=== PATIENT | male | born 1935 | race Caucasian/White ===

== ENCOUNTER → 2017-08-23 | Outpatient (CLI) | payer MEDICARE, OTHER ==
[~2017-08-23] MED LIST: REGADENOSON 0.4 MG/5 ML SYRINGE ONE
== END ==
LOC: CVU 09:35
PROVIDERS: ATTEND Internal Medicine Cardiovascular Disease
DX: I10 Essential (primary) hypertension (principal); Z95.1 Presence of aortocoronary bypass graft
CPT/HCPCS: 78452; 93017; 93306; A9502; J2785

== ENCOUNTER 2017-10-28 20:29 | Emergency (ER) | payer MEDICARE, OTHER ==
[~2017-10-28] VITALS: Ht 188 cm; Wt 126.6 kg
[2017-10-28 20:45] VITALS: BP 176/82
[2017-10-28 21:20] LABS: BASOPHILS % (AUTO) 0 % (0-1); EOSINOPHILS # (AUTO) 0.11 x10^3/uL (0-0.4); EOSINOPHILS % (AUTO) 1 % (1-7); LYMPHOCYTES # (AUTO) 1.29 x10^3/uL (1-3.4); LYMPHOCYTES % (AUTO) 10 % (22-44); MD NO; MEAN CORPUSCULAR HEMOGLOBIN 29.1 pg (27.5-34.5); MEAN CORPUSCULAR HGB CONC 33.2 g/dL (33.2-36.2); MEAN CORPUSCULAR VOLUME 87.6 fL (81-97); MEAN PLATELET VOLUME 10.1 fL (7.4-10.4); MONOCYTES # (AUTO) 0.28 x10^3/uL (0.2-0.8); MONOCYTES % (AUTO) 2 % (2-9); NEUTROPHILS # (AUTO) 11.01 x10^3/uL (1.8-6.8); NEUTROPHILS % (AUTO) 87 % (42-75); PLATELET COUNT 169 x10^3/uL (130-400); RED BLOOD COUNT 5.29 x10^6/uL (4.38-5.82); RED CELL DISTRIBUTION WIDTH 14.5 % (9.4-14.8)
[2017-10-28 21:32] LABS: ALANINE AMINOTRANSFERASE 29 U/L (12-78); ALBUMIN 3.7 g/dL (3.4-5.0); ANION GAP 6 mmol/L (5-15); CALCIUM 9.8 mg/dL (8.5-10.1); CHLORIDE 107 mmol/L (98-107)
[2017-10-28 21:35] LABS: ALKALINE PHOSPHATASE 62 U/L (45-117); BILIRUBIN,TOTAL 0.4 mg/dL (0.2-1.0); CREATININE 1.55 mg/dL (0.7-1.3); TOTAL PROTEIN 7.1 g/dL (6.4-8.2)
[2017-10-28] MEDS ORDERED: ONDANSETRON 2MG/ML, 2ML IVPush ONE (22:00)
[2017-10-28 22:05] LABS: CULTURE INDICATED? NO; MICROSCOPIC AUTO
[2017-10-28] MEDS ORDERED: ONDANSETRON 2MG/ML, 2ML ONE (22:05)
[2017-10-28] MEDS ORDERED: MORPHINE SULFATE 4 MG/ML, 1ML ONE ×2 (22:06→23:05)
[2017-10-28] MEDS: MORPHINE SULFATE 4 MG/ML, 1ML IVPush PRN ×2 (22:16→23:07)
[2017-10-28] MEDS ORDERED: DIPHENHYDRAMINE 50 MG/ML, 1ML ONE (23:14)
[2017-10-28] MEDS ORDERED: DIPHENHYDRAMINE 50 MG/ML, 1ML IVPush ONE (23:30)
== END 2017-10-29 00:13 | disposition home or self-care (01) ==
LOC: ED 22:07
DX: N13.2 Hydronephrosis with renal and ureteral calculous obstruction (principal); E11.9 Type 2 diabetes mellitus without complications; E78.5 Hyperlipidemia, unspecified; I25.2 Old myocardial infarction; Z87.891 Personal history of nicotine dependence
CPT/HCPCS: 36415; 74176; 80053; 81001; 83690; 85025; 93005; 96374; 96375; 96376; 99285; J1200; J2405

== ENCOUNTER 2019-04-13 18:35 | Emergency (ER) | payer MEDICARE, OTHER ==
[~2019-04-13] VITALS: Ht 188 cm; Wt 127.3 kg
--- NOTE | 2019-04-13 18:42 | NUR ---
PT HUMA BENNETT FROM HOME FOR LUQ ABDOMINAL PAIN AND BEING TIRED. PER PT'S DAUGHTER, HE W[place] WITH FAMILY AND THEY HAD A DIFFICULT TIME GETTING HIM OUT OF THE CHAIR BACK TO THE CAR. PER SABRINA PT'S BLOOD SUGAR 392 AT SCENE. PT STATES HE FORGOT TO TAKE HIS INSULIN TODAY. PT DENIES PAIN OR ANY COMPLAINTS NOW. SLIGHT WORK OF BREATHING NOTED. PER PT THIS IS NORMAL. 94% ON RA. HR 94. RESTING ON GURNEY. CONNECTED TO MONITOR.
--- NOTE | 2019-04-13 18:52 | NUR ---
REPORT GIVEN TO BIRDIE LEY.
--- NOTE | 2019-04-13 19:15 | NUR ---
Nocturnal RN to bedside. Assumed patient care. Patient resting comfortably, daughter and caregiver at bedside. Awaiting assessment by provider.
[2019-04-13 19:28] LABS: BASOPHILS % (AUTO) 0 % (0-1); EOSINOPHILS % (AUTO) 0 % (1-7); LYMPHOCYTES # (AUTO) 0.32 x10^3/uL (1-3.4); LYMPHOCYTES % (AUTO) 6 % (22-44); MD NO; MEAN CORPUSCULAR HEMOGLOBIN 29.1 pg (27.5-34.5); MEAN CORPUSCULAR HGB CONC 33.2 g/dL (33.2-36.2); MEAN CORPUSCULAR VOLUME 87.7 fL (81-97); MEAN PLATELET VOLUME 9.9 fL (7.4-10.4); MONOCYTES # (AUTO) 0.36 x10^3/uL (0.2-0.8); MONOCYTES % (AUTO) 6 % (2-9); NEUTROPHILS # (AUTO) 5.26 x10^3/uL (1.8-6.8); NEUTROPHILS % (AUTO) 88 % (42-75); O2 FLOW ROOM AIR L/min; PH, VENOUS 7.406 pH (7.320-7.420); PLATELET COUNT 121 x10^3/uL (130-400); RED BLOOD COUNT 5.12 x10^6/uL (4.38-5.82); RED CELL DISTRIBUTION WIDTH 14.5 % (9.4-14.8)
[2019-04-13 19:41] LABS: ALANINE AMINOTRANSFERASE 31 U/L (12-78); ALBUMIN 3.4 g/dL (3.4-5.0); ANION GAP 9 mmol/L (5-15); CALCIUM 9.2 mg/dL (8.5-10.1); CHLORIDE 103 mmol/L (98-107); CREATININE 1.37 mg/dL (0.7-1.3)
[2019-04-13 19:44] LABS: ALKALINE PHOSPHATASE 68 U/L (45-117); BILIRUBIN,TOTAL 0.8 mg/dL (0.2-1.0); TOTAL PROTEIN 7.2 g/dL (6.4-8.2)
[2019-04-13 19:56] LABS: ACETONE, SERUM Negative (Negative)
[2019-04-13 21:10] VITALS: BP 143/69
[2019-04-13 21:22] LABS: TROPONIN I < 0.015 ng/mL (0.000-0.045)
[2019-04-13 21:44] LABS: MICROSCOPIC AUTO
[2019-04-13 21:47] LABS: CULTURE INDICATED? NO
[2019-04-13] MEDS ORDERED: SULF1TAB24 PO (21:48)
[2019-04-13] MEDS ORDERED: WARF1TAB74 PO (21:48)
== END 2019-04-13 22:07 | disposition home or self-care (01) ==
LOC: ED 19:31
DX: E11.65 Type 2 diabetes mellitus with hyperglycemia (principal); M79.662 Pain in left lower leg; R11.0 Nausea; I25.2 Old myocardial infarction; E78.5 Hyperlipidemia, unspecified; Z87.891 Personal history of nicotine dependence
CPT/HCPCS: 71045; 80053; 81001; 82010; 82803; 82962; 83880; 84484; 85025; 93005; 99284

== ENCOUNTER → 2019-07-09 | Outpatient (CLI) | payer MEDICARE, OTHER ==
[~2019-07-09] MED LIST changes: -REGADENOSON 0.4 MG/5 ML SYRINGE ONE; +SULF1TAB24 PO; +WARF1TAB74 PO
== END | disposition home or self-care (01) ==
LOC: CVU 08:30
PROVIDERS: ATTEND Internal Medicine Cardiovascular Disease
DX: I08.0 Rheumatic disorders of both mitral and aortic valves (principal); I11.9 Hypertensive heart disease without heart failure; I25.5 Ischemic cardiomyopathy
CPT/HCPCS: 93306

== ENCOUNTER → 2019-07-24 | Outpatient (CLI) | payer MEDICARE, OTHER | END | disposition home or self-care (01) | LOC: CVU 08:59 | PROVIDERS: ATTEND Internal Medicine Cardiovascular Disease | DX: I70.213 Atherosclerosis of native arteries of extremities with intermittent claudication, bilateral legs (principal); M79.669 Pain in unspecified lower leg | CPT/HCPCS: 93922 ==

== ENCOUNTER → 2019-10-13 | Outpatient (CLI) | payer MEDICARE, OTHER | END | disposition home or self-care (01) | LOC: CVU 08:34 | PROVIDERS: ATTEND Internal Medicine Cardiovascular Disease | DX: I70.0 Atherosclerosis of aorta (principal); I73.9 Peripheral vascular disease, unspecified; I71.4 Abdominal aortic aneurysm, without rupture | CPT/HCPCS: 93978 ==